=== PATIENT | male | born 1955 | race Asian ===

== ENCOUNTER 2021-03-01 15:42 | Inpatient (IN) | payer SELFPAY ==
[2021-03-01 16:51] LABS: BASO % 0.8 % (0-2.0); EOS % 4.7 % (0-4.5); HEMATOCRIT 44.9 % (35.4-49); HEMOGLOBIN 15.9 GM/dl (11.7-16.9); LYMPH % 30.4 % (8-40); MCH 31.9 pg (25.7-33.7); MCHC 35.4 g/dl (32.0-35.9); MEAN CELL VOLUME 90.2 fl (80-96); MONO % 6.2 % (3.8-10.2); NEUT % 57.9 % (42.8-82.8); PLATELET COUNT 270 10^3/uL (134-434); RBC 4.98 M/mm3 (4.00-5.60); RDW 12.4 % (11.9-15.9); WHITE BLOOD COUNT 8.7 K/mm3 (4.0-10.8)
[2021-03-01 16:54] LABS: ACTIVATED PTT 30.9 SECONDS (25.2-36.5); ALBUMIN 4.4 g/dl (3.4-5.0); BILIRUBIN,TOTAL 0.6 mg/dl (0.2-1); CALCIUM 9.4 mg/dl (8.5-10); TOT PROT 7.5 g/dl (6.4-8.2)
[2021-03-01 16:59] LABS: INR 1.1 (0.82-1.09); PROTHROMBIN TIME (PATIENT) 12.2 SEC (10.2-13.0)
[2021-03-01] MEDS ORDERED: ALBUTEROL SO4 2.5/IPRATROPIUM 0.5 INH SOL 3 ML VIAL.NEB. NEB ONE ×2 (17:25→17:34)
[2021-03-01] MEDS ORDERED: ASPIRIN 325 MG TABLET ONE (21:26)
[2021-03-01] MEDS: ASPIRIN 81 MG CHEWABLE TABLETS PO ONE ×2 (21:27→21:31)
[2021-03-01] MEDS ORDERED: ASPIRIN 81 MG CHEWABLE TABLETS PO ONE (21:29)
[2021-03-01] MEDS ORDERED: ASPIRIN 81 MG CHEWABLE TABLETS ONE (21:30)
[2021-03-01 22:17] VITALS: BMI 33.1
[2021-03-02 08:39] LABS: CALCIUM 9.4 mg/dl (8.5-10); MAGNESIUM 2.1 mg/dL (1.8-2.4)
[2021-03-02 08:41] LABS: BASO % 0.9 % (0-2.0); EOS % 6.3 % (0-4.5); HEMATOCRIT 44.6 % (35.4-49); HEMOGLOBIN 15.5 GM/dl (11.7-16.9); LYMPH % 34.7 % (8-40); MCH 31.8 pg (25.7-33.7); MCHC 34.8 g/dl (32.0-35.9); MEAN CELL VOLUME 91.1 fl (80-96); MEAN PLT VOLUME 7.9 fl (7.5-11.1); MONO % 7.3 % (3.8-10.2); NEUT % 50.8 % (42.8-82.8); PLATELET COUNT 244 10^3/uL (134-434); RBC 4.89 M/mm3 (4.00-5.60); RDW 12.4 % (11.9-15.9); WHITE BLOOD COUNT 9.2 K/mm3 (4.0-10.8)
[2021-03-02] MEDS ORDERED: NITROGLYCERIN SUBLINGUAL 1/150 0.4 MG TAB SL ONE (09:15)
[2021-03-02] MEDS: ENOXAPARIN NA (PORCINE) 40 MG/0.4 ML DISP.SYRIN SQ SCH (09:25)
[2021-03-02] MEDS ORDERED: NITROGLYCERIN SUBLINGUAL 1/150 0.4 MG TAB ONE (09:51)
[2021-03-02 10:12] LABS: N-TERMINAL BNP 53.5 pg/ml (5-125)
[2021-03-02 11:03] LABS: CHOLESTEROL 192 mg/dl (50-200); HDL CHOLESTEROL 28 mg/dl (40-60); LDL CHOLESTEROL (ONLY DFH) 139 mg/dl (5-100); TRIGLYCERIDES 127 mg/dl (0-150)
[2021-03-02] MEDS: ASPIRIN 81 MG CHEWABLE TABLETS PO SCH (11:48)
[2021-03-02] MEDS: NITROGLYCERIN SUBLINGUAL 1/150 0.4 MG TAB SL PRN (20:00)
[2021-03-03] MEDS: NITROGLYCERIN SUBLINGUAL 1/150 0.4 MG TAB SL PRN ×3 (01:37→20:30)
[2021-03-03] MEDS: ASPIRIN 81 MG CHEWABLE TABLETS PO SCH (09:48)
[2021-03-03] MEDS: ENOXAPARIN NA (PORCINE) 40 MG/0.4 ML DISP.SYRIN SQ SCH (09:49)
[2021-03-04 07:50] LABS: CALCIUM 9.6 mg/dl (8.5-10)
[2021-03-04] MEDS: ASPIRIN 81 MG CHEWABLE TABLETS PO SCH (09:23)
[2021-03-04] MEDS: ENOXAPARIN NA (PORCINE) 40 MG/0.4 ML DISP.SYRIN SQ SCH (09:23)
[2021-03-04 13:50] VITALS: BP 130/70; PULSE 88; TEMP 98.5
[2021-03-04] MEDS: NITROGLYCERIN SUBLINGUAL 1/150 0.4 MG TAB SL PRN (14:59)
== END 2021-03-04 16:07 | disposition left against medical advice (07) | DRG 190 ==
LOC: FER 15:42 → FM/S 20:44 → UNDOADMOB 20:44 → OBSVTOIN 20:44 → INTOOBSV 20:44 → UNDOADMOB 21:02 → FM/S 21:02 → INTOOBSV 03-02 13:00 → OBSVTOIN 03-02 13:00 → FM/S 03-02 13:00
PROVIDERS: ADMIT Hospitalist; ATTEND Nurse Practitioner Acute Care
DX: I21.4 Non-ST elevation (NSTEMI) myocardial infarction (principal); R06.02 Shortness of breath; F17.210 Nicotine dependence, cigarettes, uncomplicated; R77.8 Other specified abnormalities of plasma proteins; R07.89 Other chest pain; J20.9 Acute bronchitis, unspecified; I10 Essential (primary) hypertension; E78.5 Hyperlipidemia, unspecified
CPT/HCPCS: 36415; 71046-TC-FY; 80048; 80053; 80061; 82550; 82553; 83036; 83735; 83880; 84443; 84484; 85025; 85610; 85730; 93005; 93010; 93306-TC; 99285-25; C9803; U0003; U0005